=== PATIENT | male | born 1955 | race Caucasian/White ===

== ENCOUNTER 2024-01-03 13:01 | Outpatient (AMB) | payer MEDICARE, MEDICAID, SELFPAY ==
--- NOTE | 2024-01-03 11:46 | A.OFFPC_ITS ---
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 Intake Note: New patient visit Streetcar Starter Required: No Allergies No Known Allergies Allergy (Verified 01/03/24 11:47) Tobacco use date assessed: 01/03/24 Fall risk assessment: No Falls in past year Last assessed Fall Risk: 01/03/24 Dental Screening Dental Screen Date: 01/03/24 Did you have a dental visit in the last 12 months?: Yes Did you have a dental problem in the last 6 months where you did not have access to dental care?: No Was dental information given to patient?: Patient has dentist HPI HPI Comments History of Present Illness Details 68 year old male with a past medical his tory of CAD status post CABG (2011), H pylori PUD, prostate cancer, type 2 diabetes, peripheral neuropathy was presenting to follow-up. Type 2 diabetes: On metformin 1500 mg daily. POC A1C today is 5.3% Denies hypoglycemia, chronic neuropathy which is multifactorial. Follows with nephrology, Dr. Thompson and Dr. Peck Neuro: Neuropathy. Low-sodium 10/29. 127 resolved. Follows with Neurology Dr. Thomas Cardiovascular: CAD status post CABG 2011. On Lipitor, Toprol, Imdur, lisinopril. Denies chest pain, headaches, lower extremity edema Heme-Onc: History of prostate cancer status post TURP, radiation in 2020. Follows with Dr. Mason GI: Hospitalized at [facility] 2020 for acute GI bleed with hematemesis and melena. On IV Protonix. COVID positive at the time. H pylori was positive and started on antibiotics. History of GI endoscopy a few months prior showed nonbleeding pre-pyloric gastric ulcer, nonbleeding duodenal erosions with evidence of peptic duodenitis. Slightly anemic sometimes on labs-10/2023 normal. B12 still a bit low on 500mcg daily. Denies increased reflux, rectal bleeding, dark stools Musculoskeletal: As ages his chronic bilateral shoulder and neck pain has worsened. History of shoulder arthroscopy more than 5 years ago at [facility]. Decreased mobility, history of neck surgery with Dr. Martin. Tylenol has not been effective. History of GERD and GI bleed Has had good relief and wants to consider long-term pain control he was placed on Xtampza ER. Has also pleasant oxycodone IR breakthrough pain. He is due for colonoscopy ROS CONSTITUTIONAL: Denies weight loss, fever and chills. HEENT: Denies changes in vision and hearing. RESPIRATORY: Denies SOB and cough. CV: Denies palpitations and CP GI: Denies abdominal pain, nausea, vomiting and diarrhea. : Denies dysuria and urinary frequency. MSK: Denies new myalgia and joint pain. SKIN: Denies rash and pruritus. NEUROLOGICAL: Denies headache PSYCHIATRIC: Denies recent changes in mood. PHYSICAL EXAM: GENERAL: Alert and oriented x 3. NAD EYES: EOMI. Anicteric. HENT: Moist mucous membranes. No scleral icterus. No cervical lymphadenopathy. LUNGS: Clear to auscultation bilaterally. CARDIOVASCULAR: Regular rate and rhythm. No murmur. No JVD. ABDOMEN: Soft, non-tender +bs EXTREMITIES: No edema. Non-tender. SKIN: No rashes or lesions. Warm. NEUROLOGIC: No focal neurological deficits. CN II-XII grossly intact PSYCHIATRIC: Cooperative. 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 Current occupational exposures/hazards: No Cognitive needs: No Hearing needs: No Vision needs: No Questionnaire Thrive Questionnaire Date Thrive assessed: 01/03/24 I am a: Patient What is your living situation today?: I have a steady place to live Within the past 12 months, did you worry whether your food would run out before you got money to buy more?: Never true Do you have trouble paying for medicines?: No Do you have trouble getting transportation to medical appointments?: No Do you have trouble paying your heating and electricity bill?: I choose not to answer this question Do you have trouble taking care of your child, family member or friend?: No Do you have trouble with day-to-day activities such as bathing, preparing meals, shopping, managing finances, etc.?: No Are you currently unemployed and looking for a job?: No Are you interested in more education?: No Please select the resources that you would like help with: None Currently or been in a relationship where the following occur: No concerns reported THRIVE Score: 0 AUDIT C Alcohol Use Questionnaire (AUDIT-C) 1. How often do you have a drink containing alcohol?: 2-3 times a week 2. How many drinks containing alcohol do you have on a typical day when you are drinking?: 3 or 4 3. How often do you have six or more drinks on one occasion?: Less than monthly Total Score: 5 ROHIT-7 AMB Questionnaire ROHIT-7 Feeling nervous, anxious, or on edge: 1 = Several days Not being able to stop or control worryin = Not at all Worrying too much about different things: 1 = Several days Trouble relaxin = Several days Being so restless that it is hard to sit still: 0 = Not at all Feeling afraid as if something awful might happen: 0 = Not at all Source: Developed by Drs. Raji Ferrell, Mary Borrero, Adrien Méndez and colleagues, with an educational ilsa from [employer] Physical exam (Primary Care) Vital Signs: Last Vital Signs Temp 97.9 F 01/03/24 13:20 Pulse 67 01/03/24 13:20 Resp 14 01/03/24 13:20 BP 136/62 01/03/24 13:20 Pulse Ox 95 01/03/24 13:20 Oxygen Delivery Method Room Air 01/03/24 13:20 BMI result Body Mass Index 26.6 Tobacco/Smoking Status: Tobacco use Status Tobacco use date assessed 01/03/24 01/03/24 11:57 Patient Tobacco Use Status Former Tobacco user 01/03/24 11:57 e-Cigarette/Vaping Use Never Used 01/03/24 11:57 Thrive Assessment: Date of Thrive Assessment Date Thrive assessed 01/03/24 01/03/24 11:54 Currently or been in a relationship where the following occur: No concerns reported Results AMB Hemoglobin A1c AMB Hemoglobin A1c 5.3 % Last Edit by Carmela Myles CMA on 01/03/24 15:54 Results Reviewed Results Reviewed: Laboratory Last Values Hgb A1c (Clinic) 5.3 % (4.0-6.0) 01/03/24 15:53 Coding Level of Care Code Est Pt Level 5 (42850) Diagnoses Malignant tumor of prostate C61 Coronary artery disease I25.10 Coronary Disease-Associated Artery/Lesion type: bypass graft Type 2 diabetes mellitus with diabetic polyneuropathy, without long-term current use of insulin E11.42 Diabetes mellitus complication detail: with polyneuropathy 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 psa <0.1. continue urology follow up (2) Coronary artery disease: Code(s): I25.10 - Atherosclerotic heart disease of [place] coronary artery without angina pectoris Category: Medical Qualifiers: Coronary Disease-Associated Artery/Lesion type: bypass graft Plan: s/p CABG. No chest pain. No increased exertional dyspnea (3) Type 2 diabetes mellitus with neurologic complication: Code(s): E11.49 - Type 2 diabetes mellitus with other diabetic neurological complication Category: Medical Qualifiers: Diabetes mellitus complication detail: with polyneuropathy Diabetes mellitus senior living insulin use: without local company intermodal truck driver use Qualified Code(s): E11.42 - Type 2 diabetes mellitus with diabetic polyneuropathy Plan: Increase B12 Check POC A1C today Orders: Orders AMB Hemoglobin A1c Today E11.42 - Type 2 diabetes mellitus with diabetic polyneuropathy Referrals Open Access Screening Colonoscopy Referral Z12.11 - Encounter for screening for malignant neoplasm of colon, Z12.12 - Encounter for screening for malignant neoplasm of rectum Medications: New colchicine 0.6 mg PO DAILY 90 caps 3RF 90 days Changed From oxycodone Partial Fill upon patient request. 5 mg PO Q4-6H PRN 24 tabs 0RF pain To oxycodone Partial Fill upon patient request. 5 mg PO Q4-6H PRN 112 tabs 0RF pain 28 days
[2024-01-03 13:20] VITALS: BP 136/62; PULSE 67; RESP 14; TEMP 36.6; O2SAT 95; BMI 26.6
== END 2024-01-03 14:13 | disposition home or self-care (01) ==
PROVIDERS: PCP Internal Medicine; Visit Provider Internal Medicine
DX: E11.42 Type 2 diabetes mellitus with diabetic polyneuropathy (principal); C61 Malignant neoplasm of prostate; I25.10 Atherosclerotic heart disease of native coronary artery without angina pectoris

== ENCOUNTER → 2024-01-03 13:01 | Outpatient (BNVA) | payer MEDICARE, SELFPAY | PROVIDERS: Visit Provider Internal Medicine | DX: I25.10 Atherosclerotic heart disease of native coronary artery without angina pectoris (principal); I10 Essential (primary) hypertension; C61 Malignant neoplasm of prostate; E11.42 Type 2 diabetes mellitus with diabetic polyneuropathy | CPT/HCPCS: 83036; 99212 ==

== ENCOUNTER 2024-02-17 11:12 | Outpatient (AMB) | payer MEDICARE, MEDICAID, SELFPAY ==
--- NOTE | 2024-02-17 11:22 | AM.OFFVISNUR ---
Intake Visit Reasons: Flu Shot Allergies No Known Allergies Allergy (Verified 01/03/24 11:47) Office Procedures Flu Questionnaire Does the patient have a severe egg allergy?: No Does the patient have severe life threatening allergies?: No Does the patient have a fever or illness today?: No Has the patient ever had Guillain-[place] Syndrome?: No Has the patient ever had any past reaction to a flu shot?: No Assessment & Plan Assessment & Plan Orders: Orders Influenza [id number] Immunization Today Z23 - Encounter for immunization Medications: New Fluarix Triv [id number] (PF) (flu vacc [id number] 6mos up(PF)) 0.5 mL IM ONCE 0.5 mL 0RF NS Z23 - Encounter for immunization
== END 2024-02-17 11:23 | disposition home or self-care (01) ==
PROVIDERS: PCP Internal Medicine; Visit Provider Internal Medicine
DX: Z23 Encounter for immunization (principal)

== ENCOUNTER → 2024-02-17 11:12 | Outpatient (BNVA) | payer MEDICARE, MEDICAID, SELFPAY | PROVIDERS: PCP Internal Medicine; Visit Provider Internal Medicine | DX: Z23 Encounter for immunization (principal) | CPT/HCPCS: 90471; 90656; 99211 ==

== ENCOUNTER 2024-04-07 11:09 | Outpatient (AMB) | payer MEDICARE, MEDICAID, SELFPAY ==
--- NOTE | 2024-04-07 11:24 | A.OFFPC_ITS ---
Vital Signs 04/07/24 11:25 Height 5 ft 7.8 in Weight 175 lb 6 oz BMI 26.8 BP 110/70 Blood Pressure Location Lt brachial Position Sitting Pulse 67 Pulse Source Pulse Oximeter Pulse Oximetry (%) 97 Oxygen Delivery Method Room Air Intake Visit Reasons: xray order/fell on back Intake Note: Lower back pain Speed Belt Sander Required: No Allergies No Known Allergies Allergy (Verified 04/07/24 11:24) Tobacco use date assessed: 01/03/24 Dental Screening Dental Screen Date: 01/03/24 HPI HPI Comments History of Present Illness Details 68 year old male with a past medical his tory of CAD status post CABG (2011), H pylori PUD, prostate cancer, type 2 diabetes, peripheral neuropathy was presenting to follow-up. The Wednesday after Mar 25 the patient feel on the ice. Had had lumbar and thoracic back pain, left sided more intense since the fall. Increases with deep breath, palpation Type 2 diabetes: On metformin 1500 mg daily. Controlled Denies hypoglycemia, chronic neuropathy which is multifactorial. Follows with nephrology, Dr. Thompson and Dr. Peck Neuro: Neuropathy. Low-sodium 10/29. 127 resolved. Follows with Neurology Dr. Thomas Cardiovascular: CAD status post CABG 2011. On Lipitor, Toprol, Imdur, lisinopril. Denies chest pain, headaches, lower extremity edema Heme-Onc: History of prostate cancer status post TURP, radiation in 2020. Follows with Dr. Mason GI: Hospitalized at [facility] 2020 for acute GI bleed with hematemesis and melena. On IV Protonix. COVID positive at the time. H pylori was positive and started on antibiotics. History of GI endoscopy a few months prior showed nonbleeding pre-pyloric gastric ulcer, nonbleeding duodenal erosions with ev idence of peptic duodenitis. Slightly anemic sometimes on labs-10/2023 normal. B12 still a bit low on 500mcg daily. Denies increased reflux, rectal bleeding, dark stools Musculoskeletal: As ages his chronic bilateral shoulder and neck pain has worsened. History of shoulder arthroscopy more than 5 years ago at [facility]. Decreased mobility, history of neck surgery with Dr. Martin. Tylenol has not been effective. History of GERD and GI bleed Has had good relief and wants to consider long-term pain control he was placed on Xtampza ER. Has also pleasant oxycodone IR breakthrough pain. He is due for colonoscopy ROS CONSTITUTIONAL: Denies weight loss, fever and chills. HEENT: Denies changes in vision and hearing. RESPIRATORY: Denies SOB and cough. CV: Denies palpitations and CP GI: Denies abdominal pain, nausea, vomiting and diarrhea. : Denies dysuria and urinary frequency. MSK: Denies new myalgia and joint pain. SKIN: Denies rash and pruritus. NEUROLOGICAL: Denies headache PSYCHIATRIC: Denies recent changes in mood. PHYSICAL EXAM: GENERAL: Alert and oriented x 3. NAD EYES: EOMI. Anicteric. HENT: Moist mucous membranes. No scleral icterus. No cervical lymphadenopathy. LUNGS: Clear to auscultation bilaterally. CARDIOVASCULAR: Regular rate and rhythm. No murmur. No JVD. ABDOMEN: Soft, non-tender +bs EXTREMITIES: No edema. Non-tender. SKIN: No rashes or lesions. Warm. NEUROLOGIC: No focal neurological deficits. CN II-XII grossly intact PSYCHIATRIC: Cooperative. 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 1. Little interest or pleasure in doing things: nearly every day Source: Developed by Drs. Raji Ferrell, Mary Borrero, Adrien Méndez and colleagues, with an educational ilas from [employer]. Thrive Questionnaire Date Thrive assessed: 01/03/24 I am a: Patient What is your living situation today?: I choose not to answer this question Within the past 12 months, did the food you bought not last and you didn't have the money to get more?: I choose not to answer this question Within the past 12 months, did you worry whether your food would run out before you got money to buy more?: I choose not to answer this question Do you have trouble paying for medicines?: I choose not to answer this question Do you have trouble getting transportation to medical appointments?: I choose not to answer this question Do you have trouble paying your heating and electricity bill?: I choose not to answer this question Do you have trouble taking care of your child, family member or friend?: I choose not to answer this question Do you have trouble with day-to-day activities such as bathing, preparing meals, shopping, managing finances, etc.?: I choose not to answer this question Are you currently unemployed and looking for a job?: I choose not to answer this question Are you interested in more education?: I choose not to answer this question Please select the resources that you would like help with: None Currently or been in a relationship where the following occur: I choose not to answer THRIVE Score: 0 AUDIT C Alcohol Use Questionnaire (AUDIT-C) 1. How often do you have a drink containing alcohol?: 2-3 times a week 2. How many drinks containing alcohol do you have on a typical day when you are drinking?: 1 or 2 3. How often do you have six or more drinks on one occasion?: Never Total Score: 3 ROHIT-7 AMB Questionnaire ROHIT-7 Feeling nervous, anxious, or on edge: 0 = Not at all Not being able to stop or control worryin = Not at all Worrying too much about different things: 0 = Not at all Trouble relaxin = Not at all Being so restless that it is hard to sit still: 0 = Not at all Becoming easily annoyed or irritable: 0 = Not at all Feeling afraid as if something awful might happen: 0 = Not at all Total ROHIT-7 score (0-4 normal; 5-9 mild; 10-14 moderate; 15-21 severe): 0 Source: Developed by Drs. Raji Ferrell, Mary Borrero, Adrien Méndez and colleagues, with an educational ilsa from [employer]. Physical exam (Primary Care) Vital Signs: Last Vital Signs Pulse 67 04/07/24 11:25 BP 110/70 04/07/24 11:25 Pulse Ox 97 04/07/24 11:25 Oxygen Delivery Method Room Air 04/07/24 11:25 BMI result Body Mass Index 26.8 Tobacco/Smoking Status: Tobacco use Status Tobacco use date assessed 01/03/24 04/07/24 11:27 Patient Tobacco Use Status Former Tobacco user 04/07/24 11:27 e-Cigarette/Vaping Use Never Used 04/07/24 11:27 Thrive Assessment: Date of Thrive Assessment Date Thrive assessed 01/03/24 04/07/24 11:27 Currently or been in a relationship where the following occur: I choose not to answer Coding Level of Care Code Est Pt Level 4 (25501) Diagnoses Fall, initial encounter W19.XXXA Encounter type: initial encounter Assessment & Plan Assessment & Plan (1) Fall: Code(s): W19.XXXA - Unspecified fall, initial encounter Category: Medical Qualifiers: Encounter type: initial encounter Qualified Code(s): W19.XXXA - Unspecified fall, initial encounter Plan: Increased thoracic and lumbar pain Xrays ordered Continue current medications Orders: Orders XR ribs LT min 3V w CXR1V 04/07/24 M54.9 - Dorsalgia, unspecified, W19.XXXA - Unspecified fall, initial encounter Lipid Panel 04/07/24 E11.42 - Type 2 diabetes mellitus with diabetic polyneuropathy Complete Blood Count Auto Diff 04/07/24 E11.42 - Type 2 diabetes mellitus with diabetic polyneuropathy Microalbumin, Random (w Creat) 04/07/24 E11.42 - Type 2 diabetes mellitus with diabetic polyneuropathy XR lumbar spine 2-3V 04/07/24 M54.9 - Dorsalgia, unspecified, W19.XXXA - Unspecified fall, initial encounter Hemoglobin A1c 04/07/24 E11.42 - Type 2 diabetes mellitus with diabetic polyneuropathy Comprehensive Met. Panel 04/07/24 E11.42 - Type 2 diabetes mellitus with diabetic polyneuropathy
[2024-04-07 11:25] VITALS: BP 110/70; PULSE 67; O2SAT 97; BMI 26.8
== END 2024-04-07 11:53 | disposition home or self-care (01) ==
PROVIDERS: PCP Internal Medicine; Visit Provider Internal Medicine
DX: M54.9 Dorsalgia, unspecified (principal); W19.XXXA Unspecified fall, initial encounter

== ENCOUNTER 2024-04-07 11:09 | Outpatient (REF) | payer MEDICARE, MEDICAID, SELFPAY ==
--- NOTE | ~2024-04-07 | XR_ITS ---
EXAMINATION: XR RIBS, LEFT CLINICAL INFORMATION: Left side rib pain. COMPARISON: None available. TECHNIQUE: 3 views of the left ribs were obtained. One view chest. FINDINGS: Lungs are slightly hyperinflated but clear acute process. There is no visible pneumothorax or pleural effusion. The heart size and pulmonary vascularity is normal. There are median sternotomy sutures and mediastinal ad from previous CABG. There is mild spondylosis dorsal spine. No aggressive lytic or sclerotic process seen. Multiple views of left ribs reveal no visible acute fracture or bony abnormality. Osseous structures are unremarkable. XR/XR ribs LT min 3V w CXR1V IMPRESSION: Unremarkable chest examination. Unremarkable left rib exam. Electronically signed by: Ronnie Brown MD 04/07/2024 04:20 PM EST
--- NOTE | ~2024-04-07 | XR_ITS ---
EXAMINATION: XR LUMBOSACRAL SPINE CLINICAL INFORMATION: M54.9 - Dorsalgia, unspecified COMPARISON: None. TECHNIQUE: Three views of the lumbosacral spine. FINDINGS: There is normal lumbar lordosis. The vertebral heights and alignment is normal. There is loss of L5-S1, L4-5 and L2-3 disc heights. No visible acute fracture, dislocation or lytic process seen. There is mild ventral spondylosis dorsal spine. The paravertebral soft tissues are normal. XR/XR lumbar spine 2-3V IMPRESSION: Degenerative disc changes with ventral spondylosis. No visible acute fracture or dislocation seen. Electronically signed by: Ronnie Brown MD 04/07/2024 04:21 PM EST
== END 2024-04-07 11:10 | disposition home or self-care (01) ==
LOC: HO.HMGCX 11:09
PROVIDERS: PCP Internal Medicine; Visit Provider Internal Medicine
DX: M54.9 Dorsalgia, unspecified (principal); W19.XXXA Unspecified fall, initial encounter
CPT/HCPCS: 71101; 72100; 99212

== ENCOUNTER → 2024-04-07 14:48 | Outpatient (BNV) | payer MEDICARE, MEDICAID, SELFPAY | PROVIDERS: PCP Internal Medicine; Visit Provider Radiology Diagnostic Radiology | DX: R07.82 Intercostal pain (principal); M54.9 Dorsalgia, unspecified | CPT/HCPCS: 71101; 72100 ==

== ENCOUNTER 2024-06-27 11:23 | Outpatient (AMB) | payer MEDICARE, MEDICAID, SELFPAY ==
--- NOTE | 2024-06-27 11:30 | A.OFFPC_ITS ---
Vital Signs 06/27/24 11:32 Height 5 ft 7.8 in Weight 177 lb BMI 27.1 BP 110/76 Blood Pressure Location Lt brachial Position Sitting Respiration 14 Pulse 75 Pulse Source Pulse Oximeter Pulse Oximetry (%) 98 Oxygen Delivery Method Room Air Intake Visit Reasons: cataract surgery, right eye Dr. Barron Pt. Intake Note: Bilateral catarcts. left- 06/03/24, right-06/19. [facility] Bpm Developer Required: No Allergies No Known Allergies Allergy (Verified 06/27/24 11:31) Tobacco use date assessed: 06/27/24 Fall risk assessment: No Falls in past year Last assessed Fall Risk: 06/27/24 Dental Screening Dental Screen Date: 01/03/24 HPI HPI Comments History of Present Illness Details 68 year old male with a past medical his tory of CAD status post CABG (2011), H pylori PUD, prostate cancer, type 2 diabetes, peripheral neuropathy presenting for preop for b/l cataract surgery Diabetes is well controlled Kidney function is stable No shortness of breath, chest pain. Can walk up multiple flights of stairs, one mile or more without difficult Has tolerated anesthesia in the past without difficulty Type 2 diabetes: On metformin 1500 mg daily. Controlled Denies hypoglycemia, chronic neuropathy which is multifactorial. Follows with nephrology, Dr. Thompson and Dr. Peck Neuro: Neuropathy. Follows with Neurology Dr. Thomas . On b12 Cardiovascular: CAD status post CABG 2011. On Lipitor, Toprol, Imdur, lisinopr il. Denies chest pain, headaches, lower extremity edema Heme-Onc: History of prostate cancer status post TURP, radiation in 2020. Follows with Dr. Mason GI: Hospitalized at [facility] 2020 for acute GI bleed with hematemesis and melena. On IV Protonix. COVID positive at the time. H pylori was positive and started on antibiotics. History of GI endoscopy a few months prior showed nonbleeding pre-pyloric gastric ulcer, nonbleeding duodenal erosions with evidence of peptic duodenitis. Slightly anemic sometimes on labs-10/2023 normal. B12 still a bit low on 500mcg daily. Denies increased reflux, rectal bleeding, dark stools Musculoskeletal: As ages his chronic bilateral shoulder and neck pain has worsened. History of shoulder arthroscopy more than 5 years ago at new [facility]. Decreased mobility, history of neck surgery with Dr. Martin. Tylenol has not been effective. History of GERD and GI bleed Has had good relief and wants to consider long-term pain control he was placed on Xtampza ER. Has also pleasant oxycodone IR breakthrough pain. He is due for colonoscopy-referral was placed ROS CONSTITUTIONAL: Denies weight loss, fever and chills. HEENT: Denies changes in vision and hearing. RESPIRATORY: Denies SOB and cough. CV: Denies palpitations and CP GI: Denies abdominal pain, nausea, vomiting and diarrhea. : Denies dysuria and urinary frequency. MSK: Denies new myalgia and joint pain. SKIN: Denies rash and pruritus. NEUROLOGICAL: Denies headache PSYCHIATRIC: Denies recent changes in mood. PHYSICAL EXAM: GENERAL: Alert and oriented x 3. NAD EYES: EOMI. Anicteric. HENT: Moist mucous membranes. No scleral icterus. No cervical lymphadenopathy. LUNGS: Clear to auscultation bilaterally. CARDIOVASCULAR: Regular rate and rhythm. No murmur. No JVD. ABDOMEN: Soft, non-tender +bs EXTREMITIES: No edema. Non-tender. SKIN: No rashes or lesions. Warm. NEUROLOGIC: No focal neurological deficits. CN II-XII grossly intact PSYCHIATRIC: Cooperative. 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 1. Little interest or pleasure in doing things: not at all 2. Feeling down, depressed, or hopeless: not at all 3. Trouble falling or staying asleep, or sleeping too much: not at all 4. Feeling tired or having little energy: not at all 5. Poor appetite or overeating: not at all 6. Feeling bad about yourself - or that you are a failure or have let yourself or your family down: not at all 7. Trouble concentrating on things, such as reading the newspaper or watching television: not at all 8. Moving or speaking so slowly that other people could have noticed. Or the opposite - being so fidgety or restless that you have been moving around a lot more than usual: not at all 9. Thoughts that you would be better off or of hurting yourself in some way: not at all Total score: 0 Depression Screening Interpretation: Negative Depression Screening Done: Yes 30412 - PHQ-9 Billing: Yes Source: Developed by Drs. Raji Ferrell, Mary Borrero, Adrien Méndez and colleagues, with an educational ilsa from [employer]. Thrive Questionnaire Date Thrive assessed: 06/27/24 I am a: Patient What is your living situation today?: I choose not to answer this question Within the past 12 months, did the food you bought not last and you didn't have the money to get more?: I choose not to answer this question Within the past 12 months, did you worry whether your food would run out before you got money to buy more?: I choose not to answer this question Do you have trouble paying for medicines?: I choose not to answer this question Do you have trouble getting transportation to medical appointments?: I choose not to answer this question Do you have trouble paying your heating and electricity bill?: I choose not to answer this question Do you have trouble taking care of your child, family member or friend?: I choose not to answer this question Do you have trouble with day-to-day activities such as bathing, preparing meals, shopping, managing finances, etc.?: I choose not to answer this question Are you currently unemployed and looking for a job?: I choose not to answer this question Are you interested in more education?: I choose not to answer this question Please select the resources that you would like help with: None Currently or been in a relationship where the following occur: I choose not to answer THRIVE Score: 0 Physical exam (Primary Care) Vital Signs: Last Vital Signs Pulse 75 06/27/24 11:32 Resp 14 06/27/24 11:32 BP 110/76 06/27/24 11:32 Pulse Ox 98 06/27/24 11:32 Oxygen Delivery Method Room Air 06/27/24 11:32 BMI result Body Mass Index 27.1 Tobacco/Smoking Status: Tobacco use Status Tobacco use date assessed 06/27/24 06/27/24 11:36 Patient Tobacco Use Status Former Tobacco user 06/27/24 11:42 e-Cigarette/Vaping Use Never Used 06/27/24 11:42 PHQ-9: PHQ-9 Score PHQ-9: Total score 0 06/27/24 11:58 Depression Screening Interpretation: Negative Thrive Assessment: Date of Thrive Assessment Date Thrive assessed 06/27/24 06/27/24 11:43 Currently or been in a relationship where the following occur: I choose not to answer Coding Level of Care Code Est Pt Level 4 (55506) Complex EM visit Add On G2211 Diagnoses Preop cardiovascular exam Z01.810 Type 2 diabetes mellitus with diabetic polyneuropathy, without long-term current use of insulin E11.42 Diabetes mellitus exterminator insulin use: without exterminator use Diabetes mellitus complication detail: with polyneuropathy Coronary artery disease involving [place] coronary artery of [place] heart without angina pectoris I25.10 Coronary Disease-Associated Artery/Lesion type: [place] artery [place] vs. transplanted heart: [place] heart Associated angina: without angina Additional Codes PHQ-9 - 70259 - PHQ-9 Billing: Yes ([id number]) Assessment & Plan Assessment & Plan (1) Preop cardiovascular exam: Code(s): Z01.810 - Encounter for preprocedural cardiovascular examination Category: Medical (2) Type 2 diabetes mellitus with neurologic complication: Code(s): E11.49 - Type 2 diabetes mellitus with other diabetic neurological complication Category: Medical Qualifiers: Diabetes mellitus exterminator insulin use: without exterminator use Diabetes mellitus complication detail: with polyneuropathy Qualified Code(s): E11.42 - Type 2 diabetes mellitus with diabetic polyneuropathy (3) Coronary artery disease: Code(s): I25.10 - Atherosclerotic heart disease of [place] coronary artery without angina pectoris Category: Medical Qualifiers: Coronary Disease-Associated Artery/Lesion type: [place] artery [place] vs. transplanted heart: [place] heart Associated angina: without angina Qualified Code(s): I25.10 - Atherosclerotic heart disease of [place] coronary artery without angina pectoris Plan Surgical risk factors include CAD, DM (non insulin), h/o CKD All chronic medical conditions are well controlled No chest pain, exertional dyspnea METS>/=4 EKG non ischemic Labs ordered Average risk for low risk surgery May proceed without further cardiac testing Orders: Orders Vitamin B12 and Folate Today R79.89 - Other specified abnormal findings of blo od chemistry Medications: Refilled oxycodone Partial Fill upon patient request. 5 mg PO Q4-6H 28 days PRN 112 tabs 0RF pain
[2024-06-27 11:32] VITALS: BP 110/76; PULSE 75; RESP 14; O2SAT 98; BMI 27.1
--- OUTSIDE RECORDS SUMMARY | 2024-06-27 13:53 | XMS_ITS | Clinical Summary ---
Author Organization [facility] Facility Address [address] [address] Care Team Providers Care Carton Forming Machine Tender Name Role Phone Carolyn Schultz MD Primary Care Provider [phone] Allergies No known active allergies Medications atorvastatin (LIPITOR) 20 MG tablet atorvastatin 20 mg tablet TAKE 1 TABLET BY MOUTH EVERY DAY Active colchicine 0.6 MG tablet colchicine 0.6 mg tablet Active lisinopril 5 MG tablet lisinopril 5 mg tablet TAKE 1 TABLET BY MOUTH EVERY DAY Active loratadine (CLARITIN) 10 MG tablet loratadine 10 mg tablet TAKE 1 TABLET BY MOUTH EVERY DAY Active metFORMIN (GLUCOPHAGE) 500 MG tablet metformin 500 mg tablet TAKE 1 TAB BY MOUTH DAILY (WITH BREAKFAST). AND 2 TABS AT BEDTIME Active metoprolol succinate XL (TOPROL XL) 25 MG 24 hr tablet metoprolol succinate ER 25 mg tablet,extended release 24 hr TAKE 1 TABLET BY MOUTH EVERY DAY Active OXcarbazepine (TRILEPTAL) 600 MG tablet 2 (two) times a day Active clindamycin (CLEOCIN) 300 MG capsule clindamycin HCl 300 mg capsule TAKE 1 TABLET BY MOUTH 3 TIMES A DAY UNTIL FINISHED Active Aspirin Low Dose 81 MG EC tablet Take 81 mg by mouth 1 (one) time each day 2 Active Active Problems Problem Noted Date Diagnosed Date Coronary arteriosclerosis 12/25/2021 Dyspnea on exertion 12/25/2021 Dysuria 12/19/2021 Malignant neoplasm of prostate 12/19/2021 Type 2 diabetes mellitus 01/16/2012 Immunizations Name Administration Dates Next Due Influenza, Unspecified 02/06/2020 Pfizer SARS-COV-2 07/11/2020,06/19/2020 Social History Tobacco Use Types Packs/Day Years Used Date Smoking Tobacco: Former Smokeless Tobacco: Never Tobacco Cessation:Counseling Given: No Alcohol Use Standard Drinks/Week Comments Yes 3 (1 standard drink = 0.6 oz pur e alcohol) 3-5 time a week Sex and Gender Information Value Date Recorded Sex Assigned at Not on file Legal Sex Male 9:20 AM EDT Gender Identity Not on file Sexual Orientation Not on file Last Filed Vital Signs Vital Sign Reading Time Taken Comments Blood Pressure 100/64 01/12/2022 4:24 PM EDT Pulse 69 01/12/2022 4:24 PM EDT Temperature - - Respiratory Rate - - Oxygen Saturation 96% 01/12/2022 4:24 PM EDT Inhaled Oxygen Concentration - - Weight 84.6 kg (186 lb 9.6 oz) 01/12/2022 4:24 P M EDT Height - - Body Mass Index - - Plan of Treatment Health Maintenance Due Date Last Done Comments Pneumococcal Vaccine: 65+ Ye ars (1 of 2 - PCV) 1960 Colorectal Cancer Screening: Annual FOBT 07/26/2003 Colorectal Cancer Screening: Colonoscopy 07/26/2003 Colorectal Cancer Screening: Sigmoidoscopy 07/26/2003 Diabetes: Hemoglobin A1C 10/01/2021 Diabetes: Ophthalmology Exam 10/01/2021 Diabetes: Pedal Pulse Checked 10/01/2021 Diabetes: Sensory Foot Exam 10/01/2021 Diabetes: Visual Foot Exam 10/01/2021 Influenza Vaccine (#1) 2023 02/06/2020 Hepatitis B Vaccine Aged Out No longe r eligible based on patient's age to complete this topic Insurance [place] Care Teams Carton Forming Machine Tender Relationship Specialty Start Date End Date Carolyn Schultz MD PCP - General Internal Medicine 12/11/20
--- OUTSIDE RECORDS SUMMARY | 2024-06-27 13:53 | XMS_ITS | Clinical Summary ---
Author Organization [facility] Address [address] [place] [address] Care Team Providers Care Production Metal Sprayer Name Role Phone Saad Hawk MD Primary Care Provider [phone] Allergies No known active allergies Medications Medication Sig Dispensed Refills Start Date End Date Status metoprolol succinate (TOPROL-XL) 24 hr tablet 25 mg Take by mouth daily. 0 Active OXcarbazepine (TRILEPTAL) 300 MG tablet Take 300 mg by mouth 2 (two) times a day. 0 Active metFORMIN (GLUCOPHAGE) tablet 500 mg Take 500 mg by mouth 2 (two) times a day with meals. 0 Active atorvastatin (LIPITOR) tablet 20 mg Take 20 mg by mouth daily. 0 Active aspirin EC 81 MG tablet Take 81 mg by mouth daily. 0 Active lisinopril (PRINIVIL,ZESTRIL) tablet 5 mg Take 5 mg by mouth daily. 0 Active pantoprazole (PROTONIX) 40 MG tablet Take 40 mg by mouth 2 (two) times a day. 0 Active isosorbide dinitrate (ISORDIL) 30 MG tablet Take 30 mg by mouth daily. 0 Active gabapentin (NEURONTIN) 100 MG capsule Take one capsule by mouth once daily (100 mg) for one day then increase to one tablet twice a day thereafter (200 mg) 30 capsule 1 12/18/2021 Active gabapentin (NEURONTIN) 300 MG capsule TAKE 1 CAPSULE BY MOUTH DAILY X 3 DAYS THEN TAKE 1 CAPSULE TWICE A DAY EVERY DAY THEREAFTER 60 capsule 1 04/01/2022 Active Active Problems Problem Noted Date Diagnosed Date Dysuria 12/19/2021 Prostate cancer 12/19/2021 Family History * Patient is adopted Relation Name Status Comments Father Mother Social History Tobacco Use Types Packs/Day Years Used Date Smoking Tobacco: Former Cigarettes 0.5 8 Smokeless Tobacco: Never Comments:Quit in the 80's states. Alcohol Use Standard Drinks/Week Comments Yes 2 (1 standard drink = 0.6 oz pur e alcohol) Daily Sex and Gender Information Value Date Recorded Sex Assigned at Not on file Gender Identity Not on file Sexual Orientation Not on file Job Start Date Occupation Industry Not on file Not on file Not on file Last Filed Vital Signs Vital Sign Reading Time Taken Comments Blood Pressure 144/74 01/01/2022 11:13 AM EDT Pulse 70 01/01/2022 11:13 AM EDT Temperature 36.7 ??C (98 ??F) 01/01/2022 11:13 AM EDT Respiratory Rate - - Oxygen Saturation 97% 01/01/2022 11:13 AM EDT Inhaled Oxygen Concentration - - Weight 85.3 kg (188 lb) 01/01/2022 11:13 AM EDT Height 177.8 cm (5' 10 ) 01/01/2022 11:13 AM EDT Body Mass Index 26.98 01/01/2022 11:13 AM EDT Plan of Treatment Health Maintenance Due Date Last Done Comments Hepatitis C Screening 1954 Depression Screening 1966 Preventative Health Evaluation 1972 Shingrix-Zoster Vaccine (1 of 2) 1973 Colon Cancer Screening (Colonoscopy) 07/26/1999 Fall Risk Assessment 07/26/2019 COVID-19 Vaccine (3 - Pfizer risk series) 08/08/2020 07/11/2020, 06/19/2020 Pneumococcal Vaccine (3 of 3 - PCV) 2022 2021, 08/16/2013 DTap / Tdap / Td (2 - Td or Tdap) 08/10/2022 08/10/2012 Influenza Vaccine (#1) 2023 , 02/06/2020, 02/06/2020, Additional history exists RSV Adult > 60+ Yrs or (1 - 1-dose 75+ series) 2029 Hepatitis B Vaccines Aged Out No long er eligible based on patient's age to complete this topic RSV Ped < 20 months Aged Out No longe r eligible based on patient's age to complete this topic Care Teams Production Metal Sprayer Relationship Specialty Start Date End Date Saad Hawk MD [address] [place], [place] [address] [id number] PCP - General Internal Medicine 12/18/21
== END 2024-06-27 12:02 | disposition home or self-care (01) ==
LOC: HO.HMCFM 11:24
PROVIDERS: PCP Internal Medicine; Visit Provider Nurse Practitioner Family
DX: Z01.810 Encounter for preprocedural cardiovascular examination (principal); E11.42 Type 2 diabetes mellitus with diabetic polyneuropathy; I25.10 Atherosclerotic heart disease of native coronary artery without angina pectoris

== ENCOUNTER → 2024-06-27 11:23 | Outpatient (BNVA) | payer MEDICARE, MEDICAID, SELFPAY | PROVIDERS: PCP Internal Medicine; Visit Provider Nurse Practitioner Family | DX: Z01.810 Encounter for preprocedural cardiovascular examination (principal); E11.42 Type 2 diabetes mellitus with diabetic polyneuropathy; I25.10 Atherosclerotic heart disease of native coronary artery without angina pectoris | CPT/HCPCS: 96127; 99212 ==

== ENCOUNTER → 2024-07-10 16:24 | Outpatient (BNVA) | payer MEDICARE, MEDICAID, SELFPAY | PROVIDERS: PCP Internal Medicine; Visit Provider Internal Medicine ==

== ENCOUNTER 2024-10-02 11:07 | Outpatient (AMB) | payer MEDICARE, MEDICAID, SELFPAY ==
--- NOTE | 2024-10-02 11:11 | MHC.PC.OV ---
Vital Signs 10/02/24 11:13 Height 5 ft 7.8 in Weight 165 lb 6 oz BMI 25.3 BP 110/74 Blood Pressure Location Lt brachial Position Sitting Respiration 14 Pulse 80 Pulse Source Pulse Oximeter Temp 98.1 F Temp Source Oral Pulse Oximetry (%) 97 Oxygen Delivery Method Room Air Intake Visit Reasons: pain f/up Intake Note: Follow up. Got poison karly on right hand this weekend. Registered Nurse First Assistant Required: No Allergies No Known Allergies Allergy (Verified 10/02/24 11:12) Tobacco use date assessed: 06/27/24 Fall risk assessment: No Falls in past year Last assessed Fall Risk: 10/02/24 Dental Screening Dental Screen Date: 10/02/24 Did you have a dental visit in the last 12 months?: Yes Did you have a dental problem in the last 6 months where you did not have access to dental care?: No Was dental information given to patient?: Patient has dentist HPI HPI Comments History of Present Illness Details 68 year old male with a past medical history of CAD status post CABG (2011), H pylori PUD, prostate cancer, type 2 diabetes, peripheral neuropathy presenting for follow up Type 2 diabetes: he is overdue for labs which have been ordered. On metformin 1500 mg daily. Denies hypoglycemia, chronic neuropathy which is multifactorial. Follows with nephrology, Dr. Thompson and Dr. Peck Neuro: Neuropathy. Follows with Neurology Dr. Thomas. On b12 Cardiovascular: CAD status post CABG 2011. On Lipitor, Toprol, Imdur, lisinopril. Denies chest pain, headaches, lower extremity edema Heme-Onc: History of prostate cancer status post TURP, radiation in 2020. Follows with Dr. Mason GI: Hospitalized at [facility] 2020 for acute GI bleed with hematemesis and melena. On IV Protonix. COVID positive at the time. H pylori was positive and started on antibiotics. History of GI endoscopy a few months prior showed nonbleeding pre-pyloric gastric ulcer, nonbleeding duodenal erosions with evidence of peptic duodenitis. Slightly anemic sometimes on labs-10/2023 normal. B12 still a bit low on 500mcg daily. Denies increased reflux, rectal bleeding, dark stools Musculoskeletal: As ages his chronic bilateral shoulder and neck pain has worsened. History of shoulder arthroscopy more than 5 years ago at [facility]. Decreased mobility, history of neck surgery with Dr. Martin. Tylenol has not been effective. History of GERD and GI bleed Has had good relief and wants to consider long-term pain control he was placed on Xtampza ER and oxycodone He is due for colonoscopy-referral was placed ROS CONSTITUTIONAL: Denies weight loss, fever and chills. HEENT: Denies changes in vision and hearing. RESPIRATORY: Denies SOB and cough. CV: Denies palpitations and CP GI: Denies abdominal pain, nausea, vomiting and diarrhea. : Denies dysuria and urinary frequency. MSK: Denies new myalgia and joint pain. SKIN: Denies rash and pruritus. NEUROLOGICAL: Denies headache PSYCHIATRIC: Denies recent changes in mood. PHYSICAL EXAM: GENERAL: Alert and oriented x 3. NAD EYES: EOMI. Anicteric. HENT: Moist mucous membranes. No scleral icterus. No cervical lymphadenopathy. LUNGS: Clear to auscultation bilaterally. CARDIOVASCULAR: Regular rate and rhythm. No murmur. No JVD. ABDOMEN: Soft, non-tender +bs EXTREMITIES: No edema. Non-tender. SKIN: No rashes or lesions. Warm. NEUROLOGIC: No focal neurological deficits. CN II-XII grossly intact PSYCHIATRIC: Cooperative. 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 Current occupational exposures/hazards: No Cognitive needs: No Hearing needs: No Vision needs: No Questionnaire Thrive Questionnaire Date Thrive assessed: 04/07/24 I am a: Patient What is your living situation today?: I choose not to answer this question Within the past 12 months, did the food you bought not last and you didn't have the money to get more?: I choose not to answer this question Within the past 12 months, did you worry whether your food would run out before you got money to buy more?: I choose not to answer this question Do you have trouble paying for medicines?: I choose not to answer this question Do you have trouble getting transportation to medical appointments?: I choose not to answer this question Do you have trouble paying your heating and electricity bill?: I choose not to answer this question Do you have trouble taking care of your child, family member or friend?: I choose not to answer this question Do you have trouble with day-to-day activities such as bathing, preparing meals, shopping, managing finances, etc.?: I choose not to answer this question Are you currently unemployed and looking for a job?: I choose not to answer this question Are you interested in more education?: I choose not to answer this question Please select the resources that you would like help with: None Currently or been in a relationship where the following occur: I choose not to answer THRIVE Score: 0 AUDIT C Alcohol Use Questionnaire (AUDIT-C) 1. How often do you have a drink containing alcohol?: 4 or more times a week 2. How many drinks containing alcohol do you have on a typical day when you are drinking?: 3 or 4 3. How often do you have six or more drinks on one occasion?: Never Total Score: 5 Physical exam (Primary Care) Vital Signs: Last Vital Signs Temp 98.1 F 10/02/24 11:13 Pulse 80 10/02/24 11:13 Resp 14 10/02/24 11:13 BP 110/74 10/02/24 11:13 Pulse Ox 97 10/02/24 11:13 Oxygen Delivery Method Room Air 10/02/24 11:13 BMI result Body Mass Index 25.3 Tobacco/Smoking Status: Tobacco use Status Tobacco use date assessed 06/27/24 10/02/24 11:20 Patient Tobacco Use Status Former Tobacco user 10/02/24 11:20 e-Cigarette/Vaping Use Never Used 10/02/24 11:20 Thrive Assessment: Date of Thrive Assessment Date Thrive assessed 04/07/24 10/02/24 11:20 Currently or been in a relationship where the following occur: I choose not to answer Coding Level of Care Code Est Pt Level 4 (96830) Complex EM visit Add On G2211 Diagnoses Type 2 diabetes mellitus with diabetic polyneuropathy, without long-term current use of insulin E11.42 Diabetes mellitus long term care pharmacist insulin use: without long term care pharmacist use Diabetes mellitus complication detail: with polyneuropathy Malignant tumor of prostate C61 Chronic bilateral low back pain, unspecified whether sciatica present M54.50; G89.29 Back pain location: low back pain Chronicity: chronic Back pain laterality: bilateral Sciatica presence: unspecified whether sciatica present Assessment & Plan Assessment & Plan (1) Type 2 diabetes mellitus with neurologic complication: Code(s): E11.49 - Type 2 diabetes mellitus with other diabetic neurological complication Category: Medical Qualifiers: Diabetes mellitus intermediate insulin use: without long term care pharmacist use Diabetes mellitus complication detail: with polyneuropathy Qualified Code(s): E11.42 - Type 2 diabetes mellitus with diabetic polyneuropathy (2) Malignant tumor of prostate: Code(s): C61 - Malignant neoplasm of prostate Category: Medical (3) Back pain: Code(s): M54.9 - Dorsalgia, unspecified Category: Medical Qualifiers: Back pain location: low back pain Chronicity: chronic Back pain laterality: bilateral Sciatica presence: unspecified whether sciatica present Qualified Code(s): M54.50 - Low back pain, unspecified; G89.29 - Other chronic pain Plan Chronic pain is stable on current regimen Diabetes-overdue for labs. He will go today CAD-stable on current medications
[2024-10-02 11:13] VITALS: BP 110/74; PULSE 80; RESP 14; TEMP 36.7; O2SAT 97; BMI 25.3
--- OUTSIDE RECORDS SUMMARY | 2024-10-02 12:04 | XMS_ITS | Clinical Summary ---
Author Organization [facility] Address [address] [address] Care Team Providers Care Window Shade Estimator Name Role Phone Carolyn Schultz MD Primary Care Provider [phone] Allergies No known active allergies Medications atorvastatin [...] 12/19/2021 Type 2 diabetes mellitus 01/16/2012 Immunizations Immunization Administration Dates Next Due Influenza, Unspecified 02/06/2020 [...] Due Date Last Done Comments Pneumococcal Vaccine: 50+ Ye ars (1 of 2 - PCV) 1973 Colorectal Cancer Screening: Annual FOBT 07/26/2003 Colorectal Cancer Screening: Colonoscopy 07/26/2003 Colorectal Cancer Screening: Sigmoidoscopy 07/26/2003 Diabetes: Hemoglobin A1C 10/01/2021 Diabetes: Ophthalmology Exam 10/01/2021 Diabetes: Pedal Pulse Checked 10/01/2021 Diabetes: Sensory Foot Exam 10/01/2021 Diabetes: Visual Foot Exam 10/01/2021 Influenza Vaccine (#1) 2024 02/06/2020 Hepatitis B Vaccine Aged Out No longe r eligible based on patient's age to complete this topic Insurance Medicare Medicaid [place] Medicare Medicaid [place] Care Teams Window Shade Estimator Relationship Specialty Start Date End Date Carolyn Schultz MD PCP - General Internal Medicine 12/11/20
--- OUTSIDE RECORDS SUMMARY | 2024-10-02 12:04 | XMS_ITS | Clinical Summary ---
Author Organization [facility] Address [address] [place] [address] Care Team Providers Care Skin Fitter Name Role Phone Saad Hawk MD Primary Care Provider [phone] Allergies No known active allergies Medications Medication [...] 69 01/01/2022 11:13 AM EDT Temperature 36.7 C (98 F) 01/01/2022 11:13 AM EDT Respiratory Rate - [...] Td or Tdap) 08/10/2022 08/10/2012 Influenza Vaccine (Season Ended) 2024 12/16/2020, 02/06/2020, 02/06/2020, Additional history exists RSV Adult > 60+ Yrs or (1 - 1-dose 75+ series) 2029 Hepatitis B Vaccines Aged Out No long er eligible based on patient's age to complete this topic RSV Ped < 20 months Aged Out No longe r eligible based on patient's age to complete this topic Care Teams Skin Fitter Relationship Specialty Start Date End Date Saad Hawk MD [address] [place] [address] [place] [address] PCP - General Internal Medicine 12/18/21
== END 2024-10-02 11:41 | disposition home or self-care (01) ==
LOC: HO.HMCFM 11:08
PROVIDERS: PCP Internal Medicine; Visit Provider Internal Medicine
DX: E11.42 Type 2 diabetes mellitus with diabetic polyneuropathy (principal); C61 Malignant neoplasm of prostate; M54.50 Low back pain, unspecified; G89.29 Other chronic pain

== ENCOUNTER → 2024-10-02 11:07 | Outpatient (BNVA) | payer MEDICARE, MEDICAID, SELFPAY | PROVIDERS: PCP Internal Medicine; Visit Provider Internal Medicine | DX: E11.42 Type 2 diabetes mellitus with diabetic polyneuropathy (principal); C61 Malignant neoplasm of prostate; M54.50 Low back pain, unspecified; M25.511 Pain in right shoulder; M25.512 Pain in left shoulder; M54.2 Cervicalgia; G89.29 Other chronic pain; I25.10 Atherosclerotic heart disease of native coronary artery without angina pectoris; Z79.84 Long term (current) use of oral hypoglycemic drugs; Z79.891 Long term (current) use of opiate analgesic; Z79.899 Other long term (current) drug therapy | CPT/HCPCS: 99212 ==

== ENCOUNTER 2024-10-02 11:43 | Outpatient (REF) | payer MEDICARE, MEDICAID, SELFPAY ==
[2024-10-02 14:43] LABS: MANUAL DIFF FLAG NO
[2024-10-02 14:47] LABS: Hematocrit 43.2 % (42.0-52.0); Hemoglobin 14.4 g/dl (14.0-18.0); Imm Gran Abs Auto 0.04 X10*3/uL (0.00-0.03); Imm Gran Pct Auto 0.5 % (0.0-0.4); Lymphocytes Absolute Auto 1.7 X10*3/uL (1.2-4.9); Mean Corpuscular HGB Conc 33.3 g/dl (31.0-36.0); Mean Corpuscular Hemoglobin 30.3 pg (27.0-33.0); Mean Corpuscular Volume 90.9 fL (80.0-98.0); NRBC Abs Auto 0.000 X10*3/uL (0.0-0.012); NRBC Pct Auto 0.0 /100WBC (0.0-0.2); Platelet Count 206 X10*3/uL (160-400); Red Blood Count 4.75 X10*6/uL (4.60-5.80); White Blood Count 7.6 X10*3/uL (4.8-10.8)
[2024-10-02 15:03] LABS: Alanine Aminotransferase 13 U/L (0-40); Albumin Level 4.7 g/dL (3.5-5.0); Alkaline Phosphatase 62 U/L (39-117); Anion Gap 11 (12-20); Aspartate Amino Transferase 28 U/L (5-37); Blood Urea Nitrogen 17 mg/dL (9-16); Calcium 9.0 mg/dL (8.4-10.2); Carbon Dioxide 26 mmol/L (22-29); Chloride 104 mmol/L (96-108); Cholesterol 164 mg/dL (<200); Estimated Glomerular Filt Rate > 60; HDL Cholesterol 74 mg/dL (>40); Potassium 4.4 mmol/L (3.3-5.1); Sodium 137 mmol/L (135-145); Total Protein 7.2 g/dL (6.5-8.0); Triglycerides 52 mg/dL (<150)
[2024-10-02 15:15] LABS: Hemoglobin A1C 130.8834 umol/L; Total Hemoglobin (HGBA1C) 3799.4620 umol/L
[2024-10-02 15:40] LABS: Folate 15.7 ng/mL (> or = 4.0); Vitamin B12 621 pg/mL (200-900)
[2024-10-02 15:52] LABS: Microalbum/Creatinine Ratio Ur 86.8 ug/mg cr (<30)
== END 2024-10-02 11:44 | disposition home or self-care (01) ==
LOC: HO.WFDLDS 11:43
PROVIDERS: Visit Provider Internal Medicine
DX: E11.42 Type 2 diabetes mellitus with diabetic polyneuropathy (principal); R79.89 Other specified abnormal findings of blood chemistry
CPT/HCPCS: 36415; 80053; 80061; 82043; 82570; 82607; 82746; 83036; 85025

== ENCOUNTER 2024-10-26 09:24 | Outpatient (AMB) | payer MEDICARE, MEDICAID, SELFPAY ==
--- NOTE | 2024-10-26 09:33 | A.OFFPC_ITS ---
Vital Signs 10/26/24 09:42 Height 5 ft 7.8 in Weight 170 lb 4 oz BMI 26.0 BP 122/78 Blood Pressure Location Rt brachial Position Sitting Respiration 14 Pulse 65 Pulse Source Pulse Oximeter Temp 97.7 F Temp Source Temporal Artery Scan Pulse Oximetry (%) 97 Oxygen Delivery Method Room Air Intake Visit Reasons: Discharge F/U Intake Note: Oswaldo presents in the office today for a discharge follow up. Questioning Ferrous Sulfate and his stools. Allergies No Known Allergies Allergy (Verified 10/26/24 09:37) Medication List - Last Reconciled 10/26/24 by FRANCINE Rizvi ascorbic acid (vitamin C) mg PO aspirin 81 mg PO DAILY atorvastatin 20 mg PO DAILY colchicine 0.6 mg PO DAILY 90 days isosorbide mononitrate ER 30 mg PO DAILY lisinopril 5 mg PO DAILY metformin 500 mg PO TID metoprolol succinate ER 25 mg PO DAILY oxcarbazepine mg PO oxycodone 5 mg PO Q4-6H PRN 28 days oxycodone myristate CR-ER (Xtampza ER) 9 mg PO Q12H pantoprazole 40 mg PO DAILY Tobacco use date assessed: 10/26/24 Dental Screening Dental Screen Date: 10/26/24 Did you have a dental visit in the last 12 months?: Yes Did you have a dental problem in the last 6 months where you did not have access to dental care?: No Was dental information given to patient?: Patient has dentist HPI HPI Comments History of Present Illness Details 69-year-old male with a past medical his tory of CAD status post CABG 2011, H pylori PUD, prostate cancer, type 2 diabetes and peripheral neuropathy presents for hospital follow up. Patient admitted 10/08/2024 to 10/11/2024 at [facility] for gastrointestinal bleed. Presented with mid epigastric abdominal pain and cameron melena. He started to feel short of breath. GI consulted an EGD done showing tiny superficial antral ulcer, 1 9 mm antral ulcer and tiny visible vessels. Two clips were placed. GI recommended 72 hours total IV PPI than 40 mg twice daily for 8 weeks then 40 mg indefinitely. Hemoglobin initially downtrended to 7.1. Given 1 unit of packed red blood cells. Bleeding resolved. He was started on iron and vitamin-C. He also had an abnormal chest x-ray which showed COPD changes and a probable nipple shadow at the left lung base. CXR was repeated on 10/10/24, and this was negative. He has a history of coronary artery disease. He was instructed to continue statin and Imdur. Aspirin was temporarily held and restarted. He has a history of GI bleed 4 years prior. Hospitalized at [facility] 2020 for hematemesis and melena and treated with the IV Protonix. Positive for COVID at that time. H pylori was also positive and he was treated with antibiotics. History of GI endoscopy a few months prior showed nonbleeding pre-pyloric gastric ulcer, nonbleeding duodenal erosions and evidence of peptic duodenitis. He stopped his iron supplement 5 days ago. Was unsure if he should continue it. No further episodes of melena. Energy is improving. While in the hospital he says that they noticed facial asymmetry and asked if he had had a stroke. He tells me he noticed facial asymmetry 3 months ago, but he did not pay much attention to it because he never had any other concerning symptoms. No history of CVA. ROS: Constitutional: No unexplained weight loss, fever, chills or night sweats. Eyes: No vision changes, blurry vision, double vision, eye pain, eye redness, eye discharge. ENT: No hearing loss, sneezing, congestion, runny nose or sore throat. Respiratory: No shortness of breath, cough or sputum production. Cardiovascular: No chest pain, chest pressure or chest discomfort. No palpitations or pedal edema. Gastrointestinal: No anorexia, nausea, vomiting or diarrhea. No abdominal pain or blood in stool. Neurologic: No headache, dizziness, syncope, unilateral weakness, ataxia, numbness or tingling in the extremities. Skin: No rash Physical exam: Constitutional: Alert, in no distress. Eyes: Pupils are equal, round and reactive to light. Extraocular muscles intact. Ear, Nose and Throat: Canals clear. TMs normal. Normal nasal mucosa. No nasal discharge. No oral lesions. Neck: Supple, Full range of motion. No lymphadenopathy. No palpable thyroid masses. Respiratory: Clear to auscultation. Cardiovascular: S1 S2 regular. No murmurs. Gastrointestinal: Abdomen soft, non-tender, non-distended. Normal bowel sounds. No palpable masses. Neurologic:? Asymmetry of the face noted-elevation of the right side of the mout and marionette lines visible on the left side of the face but not the right. Alert and oriented x 3, CN 2-12 intact, vapopw-gagp-yuyeej normal, sensation equal and symmetric, strength UE and LE 5/5 bilaterally, reflexes equal and symmetric.? Normal gait.? Patient able to heel walk, toe walk and walk heel-to-toe across the floor.? No pronator drift.? Negative Romberg.. Skin: No rashes Extremities: Warm and well perfused. No clubbing, cyanosis or edema. Intact peripheral pulses. Psychiatric: Normal mood and affect [facility] Medical History (Updated 10/26/24 @ 17:26 by FRANCINE Rizvi) Facial asymmetry Malignant tumor of prostate GI bleed Exertional dyspnea Dysuria Dyspnea not due to myocardial ischemia Coronary artery disease Coronary atherosclerosis Carpal tunnel syndrome Surgical History History of open heart surgery Family History Mother Diabetes Social History (Updated 10/26/24 @ 09:42 by Mandy Crenshaw MA) Housing: Apartment Alcohol intake: current Patient Tobacco Use Status: Former Tobacco user Years Smoked: 13 e-Cigarette/Vaping Use: Never Used Second Hand Smoke Exposure: No service: No 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 Current occupational exposures/hazards: No Cognitive needs: No Hearing needs: No Vision needs: No Questionnaire Thrive Questionnaire Date Thrive assessed: 04/07/24 I am a: Patient What is your living situation today?: I choose not to answer this question Within the past 12 months, did the food you bought not last and you didn't have the money to get more?: I choose not to answer this question Within the past 12 months, did you worry whether your food would run out before you got money to buy more?: I choose not to answer this question Do you have trouble paying for medicines?: I choose not to answer this question Do you have trouble getting transportation to medical appointments?: I choose not to answer this question Do you have trouble paying your heating and electricity bill?: I choose not to answer this question Do you have trouble taking care of your child, family member or friend?: I choose not to answer this question Do you have trouble with day-to-day activities such as bathing, preparing meals, shopping, managing finances, etc.?: I choose not to answer this question Are you currently unemployed and looking for a job?: I choose not to answer this question Are you interested in more education?: I choose not to answer this question Please select the resources that you would like help with: None Currently or been in a relationship where the following occur: I choose not to answer THRIVE Score: 0 Physical exam (Primary Care) Vital Signs: Last Vital Signs Temp 97.7 F 10/26/24 09:42 Pulse 65 10/26/24 09:42 Resp 14 10/26/24 09:42 BP 122/78 10/26/24 09:42 Pulse Ox 97 10/26/24 09:42 Oxygen Delivery Method Room Air 10/26/24 09:42 BMI result Body Mass Index 26.0 Tobacco/Smoking Status: Tobacco use Status Tobacco use date assessed 10/26/24 10/26/24 09:45 Patient Tobacco Use Status Former Tobacco user 10/26/24 09:42 e-Cigarette/Vaping Use Never Used 10/26/24 09:42 Thrive Assessment: Date of Thrive Assessment Date Thrive assessed 04/07/24 10/26/24 09:35 Currently or been in a relationship where the following occur: I choose not to answer Coding Level of Care Code Est Pt Level 4 (41949) Complex EM visit Add On G2211 Diagnoses Gastrointestinal hemorrhage associated with gastric ulcer K25.4 GI bleed type/associated pathology: gastric ulcer Facial asymmetry Q67.0 Assessment & Plan Assessment & Plan (1) GI bleed: Code(s): K92.2 - Gastrointestinal hemorrhage, unspecified Category: Medical Qualifiers: GI bleed type/associated pathology: gastric ulcer Qualified Code(s): K25.4 - Chronic or unspecified gastric ulcer with hemorrhage (2) 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 He is taking Protonix. He is going to schedule his follow up with Gastroenterology. He was instructed to avoid soeu-ozn-hswqfij NSAIDs aside from the baby aspirin regimen he is taking due to coronary artery disease. We discussed risk versus benefit of this medication in the context of his medical history. Avoid alcohol. Check CBC, iron and B12. We will resume iron supplement if needed. Warning signs warranting re-evaluation at ED reviewed with the patient. He does have facial asymmetry which he endorses for the past 3 months. He may have had a mild stroke. Intracranial lesion also considered. MRI of the head and brain ordered. If he develops worsening asymmetry or other neurologic def icits including weakness, numbness, tingling, dizziness he will call 911 and go to the ER. Continue baby aspirin and statin. Hypertension is well-controlled. Schedule follow up with PCP. Orders: Orders Vitamin B12 and Folate Today D64.9 - Anemia, unspecified, K92.2 - Gastrointestinal hemorrhage, unspecified IRON PROFILE Today D64.9 - Anemia, unspecified, K92.2 - Gastrointestinal hemorrhage, unspecified Ferritin Today D64.9 - Anemia, unspecified, K92.2 - Gastrointestinal hemorrhage, unspecified Complete Blood Count Auto Diff Today K92.2 - Gastrointestinal hemorrhage, unspecified MR head/brain wo/w con Today Q67.0 - Congenital facial asymmetry Basic Metabolic Panel Today Q67.0 - Congenital facial asymmetry
[2024-10-26 09:42] VITALS: BP 122/78; PULSE 65; RESP 14; TEMP 36.5; O2SAT 97; BMI 26.0
--- OUTSIDE RECORDS SUMMARY | 2024-10-26 09:42 | XMS_ITS | Clinical Summary ---
Author Organization [facility] Address [address] [place] [address] Care Team Providers Care Music Therapy Teacher Name Role Phone Saad Hawk MD Primary Care Provider [phone] Allergies No known active allergies Medications Medication [...] or Tdap) 08/10/2022 08/10/2012 Influenza Vaccine (#1) 2024 , 02/06/2020, 02/06/2020, Additional history exists RSV Adult > 60+ Yrs or (1 - 1-dose 75+ series) 2029 Hepatitis B Vaccines Aged Out No long er eligible based on patient's age to complete this topic RSV Ped < 20 months Aged Out No longe r eligible based on patient's age to complete this topic Care Teams Music Therapy Teacher Relationship Specialty Start Date End Date Saad Hawk MD [address] [place] [address] [place] [address] PCP - General Internal Medicine 12/18/21
--- OUTSIDE RECORDS SUMMARY | 2024-10-26 09:42 | XMS_ITS ---
Author Name [facility] Organization Unknown Care Team Organization Name Specialty Phone Email Start Date End Da te [facility] Jono Chappell Primary Care 09/04/2022 024 [facility] Termed, PROVIDER Primary Care 02/03/202210/27
--- OUTSIDE RECORDS SUMMARY | 2024-10-26 09:42 | XMS_ITS | Clinical Summary ---
Author Organization [facility] Facility Address [address] [address] Care Team Providers Care Body Designer Name Role Phone Carolyn Schultz MD Primary Care Provider [phone] Allergies No known active allergies Medications atorvastatin [...] Medicaid [place] Care Teams Body Designer Relationship Specialty Start Date End Date Carolyn Schultz MD PCP - General Internal Medicine 12/11/20
== END 2024-10-26 10:21 | disposition home or self-care (01) ==
LOC: HO.HMCFM 09:24
PROVIDERS: PCP Internal Medicine; Visit Provider Physician Assistant Medical
DX: K25.4 Chronic or unspecified gastric ulcer with hemorrhage (principal); Q67.0 Congenital facial asymmetry

== ENCOUNTER → 2024-10-26 09:24 | Outpatient (BNVA) | payer MEDICARE, MEDICAID, SELFPAY | PROVIDERS: PCP Internal Medicine; Visit Provider Physician Assistant Medical | DX: K25.4 Chronic or unspecified gastric ulcer with hemorrhage (principal); Q67.0 Congenital facial asymmetry | CPT/HCPCS: 99212 ==

== ENCOUNTER 2024-10-26 10:58 | Outpatient (REF) | payer MEDICARE, MEDICAID, SELFPAY ==
[2024-10-26 14:14] LABS: MANUAL DIFF FLAG NO
[2024-10-26 14:23] LABS: Hematocrit 28.9 % (42.0-52.0); Hemoglobin 9.4 g/dl (14.0-18.0); Imm Gran Abs Auto 0.03 X10*3/uL (0.00-0.03); Imm Gran Pct Auto 0.6 % (0.0-0.4); Lymphocytes Absolute Auto 1.1 X10*3/uL (1.2-4.9); Mean Corpuscular HGB Conc 32.5 g/dl (31.0-36.0); Mean Corpuscular Hemoglobin 29.7 pg (27.0-33.0); Mean Corpuscular Volume 91.5 fL (80.0-98.0); NRBC Abs Auto 0.000 X10*3/uL (0.0-0.012); NRBC Pct Auto 0.0 /100WBC (0.0-0.2); Platelet Count 210 X10*3/uL (160-400); Red Blood Count 3.16 X10*6/uL (4.60-5.80); White Blood Count 5.2 X10*3/uL (4.8-10.8)
[2024-10-26 14:55] LABS: Anion Gap 12 (12-20); Blood Urea Nitrogen 14 mg/dL (9-16); Calcium 8.5 mg/dL (8.4-10.2); Carbon Dioxide 27 mmol/L (22-29); Chloride 105 mmol/L (96-108); Estimated Glomerular Filt Rate > 60; Iron 18 mcg/dL (45-160); Percent Iron Saturation 6 % (15-50); Potassium 4.7 mmol/L (3.3-5.1); Sodium 139 mmol/L (135-145); Total Iron Binding Capacity 277 mcg/dL (228-428); Unsaturated Iron Binding 259 ug/dL
[2024-10-26 14:56] LABS: Ferritin 28 ng/mL (20-250)
[2024-10-26 15:12] LABS: Folate 14.3 ng/mL (> or = 4.0); Vitamin B12 675 pg/mL (200-900)
== END 2024-10-26 10:59 | disposition home or self-care (01) ==
LOC: HO.WFDLDS 10:58
PROVIDERS: Visit Provider Physician Assistant Medical
DX: Q67.0 Congenital facial asymmetry (principal); D64.9 Anemia, unspecified; K92.2 Gastrointestinal hemorrhage, unspecified
CPT/HCPCS: 36415; 80048; 82607; 82728; 82746; 83540; 85025

== ENCOUNTER 2024-11-10 13:31 | Outpatient (REF) | payer MEDICARE, MEDICAID, SELFPAY ==
--- NOTE | ~2024-11-10 | MR_ITS ---
EXAMINATION: MR BRAIN WITHOUT AND WITH CONTRAST CLINICAL INFORMATION: Congenital facial asymmetry COMPARISON: None available. TECHNIQUE: Multiplanar, multisequence MRI of the brain was obtained before and after the intravenous administration of 8.0 mL gadolinium based (Gadavist) without reported immediate complications. FINDINGS: No restricted diffusion. No abnormal enhancement within the intra-axial or the extra-axial compartment of the cranium. No acute intracranial hemorrhage, mass effect, midline shift, hydrocephalus or herniation. There are a few scattered, nonspecific, infratentorial and supratentorial compartment susceptibility signal foci. Flow-void signal within the main cerebral vessels is normal. Subtle hyperintense T2 FLAIR signal within the maira. Sellar/suprasellar region demonstrated no signal abnormality or masses. Craniocervical junction demonstrates normal cerebellar tonsils. Mild prominence formation periodontal region. Polypoid mucosal thickening, left maxillary sinus and left ethmoid cells MR/MR head/brain wo/w con IMPRESSION: No acute stroke. No abnormal enhancement. Probable old microhemorrhages related to hypertension and less likely amyloid angiopathy. Nonspecific T2 FLAIR signal in the maira. Consider small vessel occlusive disease. Left-sided paranasal sinus disease, chronic. Electronically signed by: Eliel Cornejo MD 11/10/2024 03:00 PM EDT
--- OUTSIDE RECORDS SUMMARY | 2024-11-10 13:34 | XMS_ITS | Clinical Summary ---
Author Organization [facility] Address [address] [place] [address] Care Team Providers Care Hospice Home Care Coordinator Name Role Phone Saad Hawk MD Primary Care Provider [phone] Allergies No known active allergies Medications Medication [...] age to complete this topic Care Teams Hospice Home Care Coordinator Relationship Specialty Start Date End Date Saad Hawk MD [address] [place] [address] [place] [address] PCP - General Internal Medicine 12/18/21
--- OUTSIDE RECORDS SUMMARY | 2024-11-10 13:34 | XMS_ITS | Clinical Summary ---
Author Organization [facility] Address [address] [address] Care Team Providers Care Workforce Management Coordinator Name Role Phone Carolyn Schultz MD Primary Care Provider [phone] Allergies No known active allergies Medications atorvastatin [...] Medicaid [place] Medicare [place] Care Teams Workforce Management Coordinator Relationship Specialty Start Date End Date Carolyn Schultz MD PCP - General Internal Medicine 12/11/20
== END 2024-11-10 13:32 | disposition home or self-care (01) ==
LOC: HO.MRI 13:31
PROVIDERS: PCP Internal Medicine; Visit Provider Physician Assistant Medical
DX: Q67.0 Congenital facial asymmetry (principal)
CPT/HCPCS: 70553; A9585

== ENCOUNTER → 2024-11-10 14:07 | Outpatient (BNV) | payer MEDICARE, MEDICAID, SELFPAY | PROVIDERS: PCP Internal Medicine; Visit Provider Radiology Diagnostic Radiology | DX: Q67.0 Congenital facial asymmetry (principal) | CPT/HCPCS: 70553 ==

== ENCOUNTER 2025-01-12 15:56 | Outpatient (AMB) | payer MEDICARE, MEDICAID, SELFPAY ==
--- NOTE | 2025-01-12 15:59 | MHC.PC.OV ---
Vital Signs 01/12/25 16:07 Height 5 ft 7.8 in Weight 170 lb 6 oz BMI 26.1 BP 126/68 Blood Pressure Location Rt brachial Position Sitting Respiration 16 Pulse 65 Pulse Source Pulse Oximeter Temp 97.7 F Temp Source Oral Pulse Oximetry (%) 97 Oxygen Delivery Method Room Air Intake Visit Reasons: Medication review Intake Note: medication review Security Systems Specialist Required: No Allergies No Known Allergies Allergy (Verified 01/12/25 16:02) Tobacco use date assessed: 10/26/24 Dental Screening Dental Screen Date: 01/12/25 Did you have a dental visit in the last 12 months?: Yes Did you have a dental problem in the last 6 months where you did not have access to dental care?: No Was dental information given to patient?: Patient has dentist HPI HPI Comments History of Present Illness Details 69 year old male with a past medical history of CAD status post CABG (2011), H pylori PUD, prostate cancer, type 2 diabetes, peripheral neuropathy presenting for follow up Patient admitted 10/08/2024 to 10/11/2024 at [facility] for gastrointestinal bleed. Presented with mid epigastric abdominal pain and cameron melena. He started to feel short of breath. GI consulted an EGD done showing tiny superficial antral ulcer, 1 9 mm antral ulcer and tiny visible vessels. Two clips were placed. GI recommended 72 hours total IV PPI than 40 mg twice daily for 8 weeks then 40 mg indefinitely. Hemoglobin initially downtrended to 7.1. Given 1 unit of packed red blood cells. Bleeding resolved. He was started on iron and vitamin-C. He also had an abnormal chest x-ray which showed COPD changes and a probable nipple shadow at the left lung base. CXR was repeated on 10/10/24, and this was negative. Type 2 diabetes: On metformin 1500 mg daily. Denies hypoglycemia, chronic neuropathy which is multifactorial. Follows with nephrology, Dr. Thompson and Dr. Peck Neuro: Neuropathy. Followed with Neurology Dr. Thomas. On b12. Recent MRI negative for CVA Cardiovascular: CAD status post CABG 2011. On Lipitor, Toprol, Imdur, lisinopril, ASA. Denies chest pain, headaches, lower extremity edema Heme-Onc: History of prostate cancer status post TURP, radiation in 2020. Follows with Dr. Mason Musculoskeletal: As ages his chronic bilateral shoulder and neck pain has worsened. History of shoulder arthroscopy more than 5 years ago at [facility]. Decreased mobility, history of neck surgery with Dr. Martin. Tylenol has not been effective. History of GERD and GI bleed Has had good relief and wants to consider long-term pain control he was placed on Xtampza ER and oxycodone GI: Hospitalized at [facility] 2020 for acute GI bleed with hematemesis and melena. On IV Protonix. COVID positive at the time. H pylori was positive and started on antibiotics. History of GI endoscopy a few months prior showed nonbleeding pre-pyloric gastric ulcer, nonbleeding duodenal erosions with evidence of peptic duodenitis. Slightly anemic sometimes on labs-10/2023 normal. B12 still a bit low on 500mcg daily. Denies increased reflux, rectal bleeding, dark stools He is due for colonoscopy-referral was placed. He says he has an upcoming appt with GI ROS CONSTITUTIONAL: Denies weight loss, fever and chills. HEENT: Denies changes in vision and hearing. RESPIRATORY: Denies SOB and cough. CV: Denies palpitations and CP GI: Denies abdominal pain, nausea, vomiting and diarrhea. : Denies dysuria and urinary frequency. MSK: Denies new myalgia and joint pain. SKIN: Denies rash and pruritus. NEUROLOGICAL: Denies headache PSYCHIATRIC: Denies recent changes in mood. PHYSICAL EXAM: GENERAL: Alert and oriented x 3. NAD EYES: EOMI. Anicteric. HENT: Moist mucous membranes. No scleral icterus. No cervical lymphadenopathy. LUNGS: Clear to auscultation bilaterally. CARDIOVASCULAR: Regular rate and rhythm. No murmur. No JVD. ABDOMEN: Soft, non-tender +bs EXTREMITIES: No edema. Non-tender. SKIN: No rashes or lesions. Warm. NEUROLOGIC: No focal neurological deficits. CN II-XII grossly intact PSYCHIATRIC: Cooperative. Appropriate mood and affect [facility] Medical History Facial asymmetry Malignant tumor of prostate GI bleed Exertional dyspnea Dysuria Dyspnea not due to myocardial ischemia Coronary artery disease Coronary atherosclerosis Carpal tunnel syndrome Surgical History History of open heart surgery Family History Mother Diabetes Social History Housing: Apartment Alcohol intake: current Patient Tobacco Use Status: Former Tobacco user Years Smoked: 13 e-Cigarette/Vaping Use: Never Used Second Hand Smoke Exposure: No Use of substances other than those prescribed or required for medical reasons: No service: No 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 3. Trouble falling or staying asleep, or sleeping too much: not at all Source: Developed by Drs. Raji Ferrell, Mary Borrero, Adrien Méndez and colleagues, with an educational ilsa from [employer]. Thrive Questionnaire Date Thrive assessed: 04/07/24 I am a: Patient What is your living situation today?: I choose not to answer this question Within the past 12 months, did the food you bought not last and you didn't have the money to get more?: I choose not to answer this question Within the past 12 months, did you worry whether your food would run out before you got money to buy more?: I choose not to answer this question Do you have trouble paying for medicines?: I choose not to answer this question Do you have trouble getting transportation to medical appointments?: I choose not to answer this question Do you have trouble paying your heating and electricity bill?: I choose not to answer this question Do you have trouble taking care of your child, family member or friend?: I choose not to answer this question Do you have trouble with day-to-day activities such as bathing, preparing meals, shopping, managing finances, etc.?: I choose not to answer this question Are you currently unemployed and looking for a job?: I choose not to answer this question Are you interested in more education?: I choose not to answer this question Please select the resources that you would like help with: None Currently or been in a relationship where the following occur: I choose not to answer THRIVE Score: 0 AUDIT C Alcohol Use Questionnaire (AUDIT-C) 1. How often do you have a drink containing alcohol?: 4 or more times a week 2. How many drinks containing alcohol do you have on a typical day when you are drinking?: 3 or 4 3. How often do you have six or more drinks on one occasion?: Daily or almost daily Total Score: 9 Physical exam (Primary Care) Vital Signs: Last Vital Signs Temp 97.7 F 01/12/25 16:07 Pulse 65 01/12/25 16:07 Resp 16 01/12/25 16:07 BP 126/68 01/12/25 16:07 Pulse Ox 97 01/12/25 16:07 Oxygen Delivery Method Room Air 01/12/25 16:07 BMI result Body Mass Index 26.1 Tobacco/Smoking Status: Tobacco use Status Tobacco use date assessed 10/26/24 01/12/25 15:59 Patient Tobacco Use Status Former Tobacco user 01/12/25 16:06 e-Cigarette/Vaping Use Never Used 01/12/25 16:06 Thrive Assessment: Date of Thrive Assessment Date Thrive assessed 04/07/24 01/12/25 15:59 Currently or been in a relationship where the following occur: I choose not to answer Coding Level of Care Code Est Pt Level 4 (68924) Complex EM visit Add On G2211 Diagnoses Type 2 diabetes mellitus with diabetic polyneuropathy, without long-term current use of insulin E11.42 Diabetes mellitus complication detail: with polyneuropathy Diabetes mellitus detention insulin use: without manager of compliance use Coronary artery disease involving [place] coronary artery of [place] heart without angina pectoris I25.10 Associated angina: without angina Coronary Disease-Associated Artery/Lesion type: [place] artery [place] vs. transplanted heart: [place] heart Low vitamin B12 level R79.89 Assessment & Plan Assessment & Plan (1) Type 2 diabetes mellitus with neurologic complication: Code(s): E11.49 - Type 2 diabetes mellitus with other diabetic neurological complication Category: Medical Qualifiers: Diabetes mellitus complication detail: with polyneuropathy Diabetes mellitus detention insulin use: without manager of compliance use Qualified Code(s): E11.42 - Type 2 diabetes mellitus with diabetic polyneuropathy (2) Coronary artery disease: Code(s): I25.10 - Atherosclerotic heart disease of [place] coronary artery without angina pectoris Category: Medical Qualifiers: Associated angina: without angina Coronary Disease-Associated Artery/Lesion type: [place] artery [place] vs. transplanted heart: [place] heart Qualified Code(s): I25.10 - Atherosclerotic heart disease of [place] coronary artery without angina pectoris (3) Low vitamin B12 level: Code(s): R79.89 - Other specified abnormal findings of blood chemistry Category: Medical Plan Type 2 diabetes-controlled GIB-no interval bleeding. He will have repeat lab next week and decide if need to continues iron CAD-bp controlled. Labs ordered Orders: Orders Complete Blood Count Auto Diff 01/12/25 E11.42 - Type 2 diabetes mellitus with diabetic polyneuropathy, K25.4 - Chronic or unspecified gastric ulcer with hemorrhage, R79.89 - Other specified abnormal findings of blood chemistry IRON PROFILE 01/12/25 E11.42 - Type 2 diabetes mellitus with diabetic polyneuropathy, K25.4 - Chronic or unspecified gastric ulcer with hemorrhage, R79.89 - Other specified abnormal findings of blood chemistry Hemoglobin A1c 01/12/25 E11.42 - Type 2 diabetes mellitus with diabetic polyneuropathy, K25.4 - Chronic or unspecified gastric ulcer with hemorrhage, R79.89 - Other specified abnormal findings of blood chemistry Comprehensive Met. Panel 01/12/25 E11.42 - Type 2 diabetes mellitus with diabetic polyneuropathy, K25.4 - Chronic or unspecified gastric ulcer with hemorrhage, R79.89 - Other specified abnormal findings of blood chemistry Lyme IgG/IgM w/reflex to WB 01/12/25 Q67.0 - Congenital facial asymmetry Medications: New sildenafil (Viagra) administer 30 minutes to 4 hours before activity coupon [id number] [facility] GroupGDRX Member [id number] 100 mg PO DAILY PRN 30 tabs 6RF sexual activity
[2025-01-12 16:07] VITALS: BP 126/68; PULSE 65; RESP 16; TEMP 36.5; O2SAT 97; BMI 26.1
--- OUTSIDE RECORDS SUMMARY | 2025-01-12 18:14 | XMS_ITS | Clinical Summary ---
Author Organization [facility] Address [address] [place] [address] Care Team Providers Care Title I Director Name Role Phone Saad Hawk MD Primary Care Provider [phone] Allergies No known active allergies Medications Medication [...] age to complete this topic Care Teams Title I Director Relationship Specialty Start Date End Date Saad Hawk MD [address] [place] [address] [place] [address] PCP - General Internal Medicine 12/18/21
== END 2025-01-12 16:33 | disposition home or self-care (01) ==
LOC: HO.HMCFM 15:57
PROVIDERS: PCP Internal Medicine; Visit Provider Internal Medicine
DX: E11.42 Type 2 diabetes mellitus with diabetic polyneuropathy (principal); I25.10 Atherosclerotic heart disease of native coronary artery without angina pectoris; R79.89 Other specified abnormal findings of blood chemistry

== ENCOUNTER → 2025-01-12 15:56 | Outpatient (BNVA) | payer MEDICARE, MEDICAID, SELFPAY | PROVIDERS: PCP Internal Medicine; Visit Provider Internal Medicine | DX: E11.42 Type 2 diabetes mellitus with diabetic polyneuropathy (principal); I25.10 Atherosclerotic heart disease of native coronary artery without angina pectoris; E53.8 Deficiency of other specified B group vitamins; Z85.46 Personal history of malignant neoplasm of prostate; Z95.1 Presence of aortocoronary bypass graft; Z79.84 Long term (current) use of oral hypoglycemic drugs; Z79.899 Other long term (current) drug therapy | CPT/HCPCS: 99212 ==